=== PATIENT | male | born 1975 | race Caucasian/White ===

== ENCOUNTER 2019-03-24 09:44 | Inpatient (IN) | payer MEDICAID ==
[~2019-03-24] VITALS: Ht 190.5 cm; Wt 146.5 kg
--- NOTE | 2019-03-24 09:57 | NUR ---
Patient to ER bed 06 to gown for evaluation. Side rails up.
--- NOTE | 2019-03-24 09:58 | NUR ---
Patient arrived in the ED c/o bilateral lower leg edema, redness and warm to touch with fevers that started yesterday. He's also complaining of Right shoulder pain and limited ROM that's been ongoing for a couple of months now post mechanical fall. Denied any nausea or vomiting. Denied any shortness of breath. Alert and oriented x4, respirations even and unlabored, ambulating with a steady gait, speaking in full sentences. VS WNL, pain level 0/10. at bedside. Informed of the wait time. Instructed to notify ED staff if there are any changes in condition or worsening of symptoms. Patient verbalized understanding.
--- NOTE | 2019-03-24 09:59 | NUR ---
KAREN Moreno at bedside examining patient.
[2019-03-24 10:03] VITALS: BP_SYST 132
[2019-03-24] MEDS ORDERED: NACL 0.9% 1,000 ML IV ONE ×2 (10:15→12:15)
[2019-03-24] MEDS ORDERED: KETOROLAC TROMETHAMINE 30 MG VIAL IVP ONE (10:15)
--- NOTE | 2019-03-24 10:15 | NUR ---
# 18 gauge angiocath placed to LAC. Use of asceptic technique. Opsite placed over site. Blood return noted. Blood for lab drawn from site. Flushed with 10 cc of normal saline. No evidence of infiltration noted. Patient tolerated well.
--- NOTE | 2019-03-24 10:21 | NUR ---
Administered Toradol 30mg IVP as ordered by Dr. Moreno. Patient tolerated the medications well.
[2019-03-24 10:27] LABS: BASOPHILS % (AUTO) 0.2 % (0.0-2.0); EOSINOPHILS % (AUTO) 0.2 % (0.0-4.0); HEMATOCRIT 43.2 % (36-54); LYMPHOCYTES # (AUTO) 1.2 K/uL (1.0-5.5); LYMPHOCYTES % (AUTO) 8.1 % (20.5-51.5); MEAN CORPUSCULAR HEMOGLOBIN 32 pg (27-31); MEAN CORPUSCULAR HGB CONC 35 % (32-36); MEAN CORPUSCULAR VOLUME 91 fL (79.0-98.0); MONOCYTES # (AUTO) 0.5 K/uL (0.0-1.0); MONOCYTES % (AUTO) 3.3 % (1.7-9.3); NEUTROPHILS # (AUTO) 13.1 K/uL (1.8-7.7); NEUTROPHILS % (AUTO) 88.2 % (40.0-70.0); PLATELET COUNT (AUTO) 186 K/uL (130-430); RED BLOOD CELL COUNT(AUTO) 4.77 MIL/uL (4.2-6.2); RED CELL DISTRIBUTION WIDTH 13.2 % (9.0-15.0); WHITE BLOOD COUNT (AUTO) 14.8 K/uL (4.8-10.8)
[2019-03-24 10:41] LABS: CALCIUM 8.7 mg/dL (8.4-11.0); CREATININE 1.19 mg/dL (0.55-1.30); POTASSIUM 3.8 mmol/L (3.5-5.1)
[2019-03-24 10:45] LABS: ALBUMIN 3.4 g/dL (3.4-4.8); TOTAL BILIRUBIN 0.7 mg/dL (0.0-1.0)
--- NOTE | 2019-03-24 10:52 | NUR ---
Reassessed pain level, 10 per patient. Patient is resting comfortably in bed.
--- NOTE | 2019-03-24 11:15 | NUR ---
Ultrasound done at bedside. Patient tolerated the procedure well.
--- NOTE | 2019-03-24 11:25 | NUR ---
Administered Levofloxacin 750mg IV running 100ml/hr as ordered by Dr. Moreno. Patient tolerated the medication well.
--- NOTE | 2019-03-24 11:39 | NUR ---
Administered Morphine Sulfate IVP as ordered by Dr. Moreno. Patent tolerated the medication well.
--- NOTE | 2019-03-24 11:41 | NUR ---
X-ray done at bedside. Patient tolerated the procedure well.
[2019-03-24] MEDS ORDERED: MORPHINE 4 MG/ML INJ. SYRINGE IVP ONE (11:45)
--- NOTE | 2019-03-24 11:57 | NUR ---
Ambulated to the bathroom with a steady gait. Urine specimen collected and dropped off at the lab.
[2019-03-24 12:22] LABS: BILIRUBIN,URINE NEGATIVE (NEGATIVE); BLOOD, URINE 1+ (NEGATIVE); CLARITY/URINE CLEAR (CLEAR); COLOR,URINE YELLOW (YELLOW); GLUCOSE,URINE NEGATIVE (NEGATIVE); KETONES,URINE NEGATIVE (NEGATIVE); LEUKOCYTE ESTERASE ,URINE NEGATIVE (NEGATIVE); NITRITE, URINE NEGATIVE (NEGATIVE); PH,URINE 6.5 (5.0-8.0); PROTEIN URINE NEGATIVE (NEGATIVE); UROBILINOGEN,URINE 0.2 (0.2-1.0)
[2019-03-24 12:33] LABS: BACTERIA,URINE RARE /HPF (None Seen); RBC,URINE 0-3 /HPF (0-3); WBC,URINE 0-3 /HPF (0-3)
[2019-03-24 12:34] LABS: MUCUS,URINE 1+ /LPF (None Seen)
[2019-03-24 12:35] LABS: BARBITURATE, URINE NEGATIVE (NEG <=200); BENZODIAZEPINE, URINE NEGATIVE (NEG <=150); CANNABINOID, URINE NEGATIVE (NEG <=50); COCAINE, URINE NEGATIVE (NEG <=150); PHENCYCLIDINE SCREEN,URINE NEGATIVE (NEG <=25); UR TRICYCLIC ANTIDEPRESSANTS NEGATIVE (NEG <=300); URINE METHADONE NEGATIVE (NEG <=200); URINE OXYCODONE SCREEN NEGATIVE (NEG <=100); URINE PROPOXYPHENE SCREEN NEGATIVE (NEG <=300)
[2019-03-24 12:36] LABS: OPIATE, URINE POSITIVE (NEG <=100)
[2019-03-24 12:37] LABS: METHAMPHETAMINES SCREEN,URINE POSITIVE (NEG <=500); URINE AMPHETAMINE POSITIVE (NEG <=500)
--- NOTE | 2019-03-24 12:44 | NUR ---
ADMISSION: The patient, ALAN MCCRARY, 43 y/o, M admitted by , was given written information regarding hospital policies, unit procedures and contact persons. Valuables were checked and .
--- NOTE | 2019-03-24 12:57 | NUR ---
Patient will be admitted to care of Dr. Martin. Admitted to Medsurg unit. Will go to room 117B. Belongings list completed. Complete and up to date summary report printed. SBAR report given to Poppy Lawton RN at bedside with opportunity for questions.
--- NOTE | 2019-03-24 13:09 | NUR ---
continuation of care report was endorsed by admission nurse. patient is awake and alert laying in bed. breathing is equal and non labored. patient educated cotton weigher operator light for assistance. patient has no complaints at this time. call light is with patient educated to use for assistance. will continue to monitor.
[2019-03-24] MEDS ORDERED: ACETAMINOPHEN 325 MG TABLET PO PRN (14:00)
[2019-03-24] MEDS ORDERED: ONDANSETRON HCL 4 MG/2 ML VIAL IVP PRN ×2 (14:00→18:15)
[2019-03-24] MEDS ORDERED: HYDROcodone/ACETAMIN 5-325 MG TAB (NORCO/ VICODIN) PO PRN (14:00)
[2019-03-24] MEDS ORDERED: TEMAZEPAM 15 MG CAPSULE PO PRN (14:00)
[2019-03-24] MEDS ORDERED: cefTRIAXone 1 GM in D5W 50 ML IV SCH ×2 (15:00→18:15)
--- NOTE | 2019-03-24 15:45 | NUR ---
MEDICATION PATIENTS SCHEDULED MEDICATION GIVEN PER ORDER. PATIENT IS LAYING IN BED, PATIENT IS SLEEPING, ATTEMPTED TO ASK QUESTIONS FOR ADMISSION AND PATIENT IS REFUSING TO ANSWER STATES HE WANTS TO SLEEP. PATIENT EDUCATED RACK ROOM WORKER LIGHT FOR ASSISTANCE. CALL LIGHT IS WITH PATIENT. PATIENT IS REFUSING TO CHANGE INTO A GOWN PATIENT WANTS TO STAY IN REGULAR CLOTHES. PATIENT HAS NO COMPLAINTS AT THIS TIME. PATIENT HAS NO OTHER NEEDS AT THIS TIME.WILL CONTINUE TO MONITOR.
[2019-03-24 16:26] VITALS: BP_SYST 127
[2019-03-24] MEDS: VANCOMYCIN HCL 1,500 MG in NS 250 ML IV SCH (17:08)
--- NOTE | 2019-03-24 17:11 | NUR ---
medication patient scheduled medication given per order. patient is sleeping, wakes up then falls right back to sleep. patient has family at bed side. patient has all safety precautions in place. call light is with patient. educated to use call light for assistance. no other needs at this time. will continue to monitor.
[2019-03-24] MEDS: HYDROcodone/ACETAMIN 10-325 MG TAB PO PRN (18:01)
[2019-03-24] MEDS ORDERED: BISACODYL 5 MG TABLET.DR (DULCOLAX) PO PRN (18:15)
--- NOTE | 2019-03-24 19:00 | NUR ---
rn closing note patient appears to be resting with both eyes closed no signs of any distress, breathing is equal and non labored. patient has all safety precautions in place. call light is with him educated to use for assistance.
--- NOTE | 2019-03-24 19:30 | NUR ---
Opening notes Received report. Patient is asleep and snoring. No signs of distress noted. Breathing even and unlabored. IV patent and intact, no signs of infiltration noted. No needs at this time. Call light with the patient. Safety precautions in place.
[2019-03-24 20:00] VITALS: BP_SYST 144
[2019-03-24] MEDS: ENOXAPARIN SODIUM 40 MG/0.4 ML SYRINGE SUBCUT SCH (21:00)
[2019-03-24] MEDS: DOCUSATE SODIUM 250 MG CAPSULE PO SCH (21:00)
--- NOTE | 2019-03-24 21:00 | NUR ---
Medications given. Educated the action and side effects of medications. Patient verbalized understanding. No adverse effects noted. Patient sitting in bed, eating food brought by . Provided patient with ice. No other needs. Call light with the patient. Safety precautions in place.
[2019-03-24] MEDS: cefTRIAXone 1 GM in D5W 50 ML IV SCH (21:05)
--- NOTE | 2019-03-24 23:20 | NUR ---
Sleeping Patient is sleeping. No signs of distress noted. Breathing even and unlabored. Call light with the patient. Safety precautions in place.
--- NOTE | 2019-03-24 23:58 | NUR ---
CONSULTATION PAGED/CALLED Reason for Consultation: CELLULITIS Person Who was Notified: SIDNEY Consulting Physician: DR. SORIA Ordering Physician: DR. FRENCH
--- NOTE | 2019-03-25 00:30 | NUR ---
Resting Patient resting, complaining of pain. PRN pain medication given. Educated the action and side effects of medications. Patient verbalized understanding. VSS. No other needs. Call light with the patient. Safety precautions in place.
[2019-03-25] MEDS: VANCOMYCIN HCL 1,500 MG in NS 250 ML IV SCH ×3 (00:38→16:47)
[2019-03-25] MEDS: HYDROcodone/ACETAMIN 10-325 MG TAB PO PRN ×3 (00:41→20:43)
[2019-03-25 00:46] VITALS: BP_SYST 133
--- NOTE | 2019-03-25 02:32 | NUR ---
Resting Patient resting in bed. No signs of distress noted. Patient ambulated to bathroom with assist. Patient back in bed. No other needs. Call light with the patient. Safety precautions in place.
--- NOTE | 2019-03-25 04:42 | NUR ---
Sleeping No signs of distress noted. Breathing even and unlabored. Call light with the patient. Safety precautions in place.
[2019-03-25 06:24] LABS: BASOPHILS % (AUTO) 0.3 % (0.0-2.0); EOSINOPHILS # (AUTO) 0.1 K/uL (0.0-0.4); HEMATOCRIT 41.6 % (36-54); HEMOGLOBIN 14.6 g/dL (14.0-18.0); LYMPHOCYTES # (AUTO) 2.4 K/uL (1.0-5.5); LYMPHOCYTES % (AUTO) 22.5 % (20.5-51.5); MEAN CORPUSCULAR HEMOGLOBIN 32 pg (27-31); MEAN CORPUSCULAR HGB CONC 35 % (32-36); MEAN CORPUSCULAR VOLUME 91 fL (79.0-98.0); MONOCYTES # (AUTO) 1.1 K/uL (0.0-1.0); MONOCYTES % (AUTO) 10.8 % (1.7-9.3); NEUTROPHILS # (AUTO) 6.9 K/uL (1.8-7.7); NEUTROPHILS % (AUTO) 65.4 % (40.0-70.0); PLATELET COUNT (AUTO) 181 K/uL (130-430); RED BLOOD CELL COUNT(AUTO) 4.55 MIL/uL (4.2-6.2); RED CELL DISTRIBUTION WIDTH 13.3 % (9.0-15.0); WHITE BLOOD COUNT (AUTO) 10.6 K/uL (4.8-10.8)
--- NOTE | 2019-03-25 06:50 | NUR ---
Closing notes Patient resting in bed, waiting for breakfast. No signs of distress noted. Breathing even and unlabored. IV patent and intact, no signs of infiltration noted. all needs met throughout the shift. Call light with the patient. Safety precautions in place. Will endorse care to day shift RN.
[2019-03-25 06:57] LABS: CALCIUM 8.5 mg/dL (8.4-11.0); CREATININE 1.15 mg/dL (0.55-1.30); POTASSIUM 3.8 mmol/L (3.5-5.1)
[2019-03-25 06:58] LABS: ALBUMIN 3.1 g/dL (3.4-4.8); FREE T4 (FREE THYROXINE) 0.9 ng/dl (0.8-1.5); THYROID STIMULATING HORMONE 3.98 uIu/mL (0.36-3.74)
[2019-03-25] MEDS: cefTRIAXone 1 GM in D5W 50 ML IV SCH ×2 (07:07→18:57)
[2019-03-25 07:23] LABS: TOTAL BILIRUBIN 0.2 mg/dL (0.0-1.0)
--- NOTE | 2019-03-25 07:30 | NUR ---
OPENING NOTES: RECEIVED PATIENT FROM HRBP NURSE. PATIENT IS AWAKE AND ALERT x4 SITTING UP IN BED. PATIENT STATES HE HAS PAIN 6/10 IN HIS RIGHT SHOULDER. PATIENT INFORMED PRN PAIN MEDS WILL BE GIVEN. PATIENT IS TOLERATING OXYGEN AT ROOM AIR WITH NO SIGNS OF DISTRESS OR SHORTNESS OF BREATH NOTED. PATIENT IN STABLE CONDITION. SAFETY, FALL, AND ASPIRATION PRECAUTIONS ARE IN PLACE. BED LOCKED IN LOWEST POSITION WITH CALL LIGHT IN REACH. WILL CONTINUE TO MONITOR PATIENT FOR ANY CHANGES.
[2019-03-25 08:16] VITALS: BP_SYST 139
[2019-03-25] MEDS: DOCUSATE SODIUM 250 MG CAPSULE PO SCH ×2 (08:33→21:00)
--- NOTE | 2019-03-25 10:05 | NUR ---
RN ROUNDS: PATIENT IS ASLEEP IN BED. NO SIGNS OF DISTRESS OR SHORTNESS OF BREATH NOTED. PATIENT IN STABLE CONDITION. SAFETY, FALL AND ASPIRATION PRECAUTIONS ARE IN PLACE. BED LOCKED IN LOWEST POSITION WITH CALL LIGHT IN REACH. WILL CONTINUE TO MONITOR PATIENT FOR ANY CHANGES.
--- NOTE | 2019-03-25 12:05 | NUR ---
RN ROUNDS: PATIENT IS ASLEEP IN BED. NO SIGNS OF DISTRESS OR SHORTNESS OF BREATH NOTED. PATIENT IN STABLE CONDITION. WILL CONTINUE TO MONITOR PATIENT FOR ANY CHANGES.
[2019-03-25 12:36] VITALS: BP_SYST 112
--- NOTE | 2019-03-25 14:20 | NUR ---
RN ROUNDS: PATIENT IS ASLEEP IN BED. NO SIGNS OF DISTRESS OR SHORTNESS OF BREATH NOTED. PATIENT TOLERATING OXYGEN AT ROOM AIR. NO SIGNS OF DISTRESS OR SHORTNESS OF BREATH NOTED. WILL CONTINUE TO MONITOR PATIENT FOR ANY CHANGES.
--- NOTE | 2019-03-25 16:15 | NUR ---
RN ROUNDS: PATIENT IS ASLEEP IN BED. NO SIGNS OF DISTRESS OR SHORTNESS OF BREATH NOTED. IV SITE IS PATENT WITH NO SIGNS OF INFILTRATION. PATIENT IN STABLE CONDITION. SAFETY, FALL, AND ASPIRATION PRECAUTIONS ARE IN PLACE. BED LOCKED IN LOWEST POSITION WITH CALL LIGHT IN REACH. WILL CONTINUE TO MONITOR PATIENT FOR ANY CHANGES.
[2019-03-25 16:39] VITALS: BP_SYST 147
--- NOTE | 2019-03-25 18:33 | NUR ---
CLOSING NOTES: PATIENT IS ASLEEP IN BED. PATIENT IS TOLERATING OXYGEN AT ROOM AIR WITH NO SIGNS OF DISTRESS OR SHORTNESS OF BREATH NOTED. IV SITE IS PATENT WITH NO SIGNS OF INFILTRATION. PATIENT IN STABLE CONDITION. SAFETY, FALL, AND ASPIRATION PRECAUTIONS REMAINED IN PLACE THROUGHOUT THE SHIFT. BED LOCKED IN LOWEST POSITION WITH CALL LIGHT IN REACH. WILL ENDORSE PATIENT CARE TO ONCOMING SENIOR PIPING DESIGNER NURSE.
--- NOTE | 2019-03-25 18:52 | NUR ---
P.T. NOTES P.T. DIOR COMPLETED; PATIENT JOANNE CONNOLLY W/ NURSE AD JOHNATHAN; O2 SAT ROOM AIR=97% Addendum: 03/25/19 at 1853 by Maria Luz Mathew PT Amended: Links added.
[2019-03-25 20:40] VITALS: BP_SYST 101
--- NOTE | 2019-03-25 20:40 | NUR ---
Opening notes Pt asleep, easily arousable. VSS, afebrile, complained of 6/10 pain. Medicated with [place] 10/325mg PO as needed. IV saline lock L. AC clear and patent. Call light within reach. Safety maintained. To monitor.
[2019-03-25] MEDS: ENOXAPARIN SODIUM 40 MG/0.4 ML SYRINGE SUBCUT SCH (21:00)
[2019-03-26] MEDS: VANCOMYCIN HCL 1,500 MG in NS 250 ML IV SCH ×3 (00:27→16:07)
--- NOTE | 2019-03-26 00:35 | NUR ---
Rounds Pt asleep. No s/s distress noted. IV antibiotic infusing L. AC 18G no s/s infiltration. Call light within reach. Safety measures maintained. To monitor.
[2019-03-26 00:40] VITALS: BP_SYST 124
--- NOTE | 2019-03-26 02:40 | NUR ---
Rounds Pt asleep, no s/s distress or discomfort noted. Call light within reach. Bed low, locked, siderails up x3. To monitor.
--- NOTE | 2019-03-26 05:35 | NUR ---
Rounds Pt sleeping, respirations even and unlabored. Call light within reach. Bed low, locked, siderails upx 3. To monitor.
[2019-03-26] MEDS: cefTRIAXone 1 GM in D5W 50 ML IV SCH (06:40)
[2019-03-26] MEDS: HYDROcodone/ACETAMIN 10-325 MG TAB PO PRN ×2 (06:48→13:58)
--- NOTE | 2019-03-26 06:51 | NUR ---
Closing notes Pt asleep, easily arousable. No s/s distress noted. Pt c/o pain 09/16 R. shoulder. Medicated with [place] 10/ 1tab. IV antibiotic administered at ordered rate L. AC good blood return. Call light within reach. Safety measures maintained. To endorse to AM nurse.
[2019-03-26] MEDS ORDERED: LEVOTHYROXINE SODIUM 0.025 MG TABLET PO SCH (07:00)
[2019-03-26 08:00] VITALS: BP_SYST 128
--- NOTE | 2019-03-26 08:00 | NUR ---
initial notes rec patient awake sitting at bedside. denies pain at this time. resp easy and unlabored. no sob noted.bilateral leg cellulitis swelling improving and elevated on a pillow. denies pain at this time. at bedside .
[2019-03-26] MEDS: DOCUSATE SODIUM 250 MG CAPSULE PO SCH (09:55)
--- NOTE | 2019-03-26 10:00 | NUR ---
rounds due meds were given and rain well. ivpb infusing well on the l ac. sleeping at intervals.
--- NOTE | 2019-03-26 11:00 | NUR ---
SS NOTES: COIN COLLECTOR was referred by nursing to see patient for SS assessment/homelessness. Demographic information confirmed. COIN COLLECTOR met with patient at bedside. Pt was asleep but agreed to wake up to be interviewed. Pt appeared to be well groomed, cooperative but no eye contact (answered with eyes closed). Pt was oriented x4 and affect was appropriate. Pt is a 43 y/o single white male who came in via ED for bilateral leg cellulitis. Pt states he has been homeless for 3 years now and has been staying in/out motels, in his car or on the streets around [facility]. Pt is independent with his ADL's (driving included, owns 2 vehicles) and does not require any DME. 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 Pt states he does not receive SSI and has not applied for general relief from SS. Pt states he has a history of anxiety; COIN COLLECTOR inquired on his triggers, pt stated "when I need to answer questions from people" (such as what SS is doing). Pt states he takes amphetamine (amount varies) and states last intake was 3 days ago. Pt denies current trouble with the law but states he had a DUI in 1995 and did Alcoholic Anonymous. Pt also states he served jail for 4 years for meth related. Pt states he does not have any support system and his relationship with family is "somewhat" okay. Pt had eyes closed the entire time, but was still cooperative. COIN COLLECTOR encouraged pt to connect self with PCP and to try applying for SSI; pt agreed and thanked SW. When discharged, pt wishes to be discharged back to [place] [id number] in [place]. COIN COLLECTOR provided pt with [facility] list, substance abuse treatments, outpatient mental health, county clinics, Homeless Assistance, and Homeless waiver on chart. No further SS needs identified but will remain available for support and when needed. Addendum: 03/26/19 at 1614 by Samaria VARGAS ALICIA received a call from patient [facility] list and his [facility] policy number; ALICIA provided pt with info. If SNF is DCP; pt states no preference as long as it is around the area and no [facility] preference.
[2019-03-26 12:00] VITALS: BP_SYST 119
--- NOTE | 2019-03-26 12:00 | NUR ---
rounds accompanied patient outside to smoke and rain well. no sob noted.
--- NOTE | 2019-03-26 13:17 | NUR ---
Dietitian Recommendation * Recommend continuing regular diet LP, RD Please refer to Nutrition Assessment for details. Addendum: 03/26/19 at [address] Amended: Links added.
--- NOTE | 2019-03-26 14:00 | NUR ---
rounds seen by dr cid and ordered to go home after vanco is infused for 1700. mom at bedside. no sob noted.
[2019-03-26] MEDS ORDERED: DOXY100C PO (16:02)
[2019-03-26 16:03] VITALS: BP_SYST 119
--- NOTE | 2019-03-26 16:20 | NUR ---
rounds vanco ivbp started. infusing well and no infiltration noted.c/p pain on the l shoulder and norco given and notified dr cid who is making rounds still.
--- NOTE | 2019-03-26 19:00 | NUR ---
kevin notes pt will be d/c after abx is infused. denies pain. no sob noted. girlfriend at bedside and waiting for patient. no sob noted.
[2019-03-26 19:03] VITALS: BP_SYST 119
--- NOTE | 2019-03-26 19:15 | NUR ---
OPENING NOTES RECEIVED PATIENT IN BED AAO X4. BREATHING UNLABORED ON ROOM AIR. NO C/O PAIN AT THIS TIME. PATIENT FOR DISCHARGE HOME TONIGHT. GIRLFRIEND AT BEDSIDE. BED IN LOWEST LOCKED POSITION. CALL LIGHT WITH IN REACH.
[2019-03-26 19:48] VITALS: BP_SYST 120
--- NOTE | 2019-03-26 20:05 | NUR ---
DISCHARGE INSTRUCTIONS PATIENT PROVIDED WITH DISCHARGE INSTRUCTIONS. HANDED PRESCRIPTIONS FOR PAIN AND PO ANTIBIOTIC. VERIFIED BELONGINGS LIST WITH PATIENT. VITAL SIGNS STABLE. VANCOMYCIN INFUSION COMPLETED. IV LINE REMOVED PRESSURE DRESSING APPLIED.
--- NOTE | 2019-03-26 20:15 | NUR ---
DISCHARGE PATIENT PROVIDED WITH ARM SLING ORDERED. PATIENT WITH GIRLFRIEND ACCOMPANIED TO LOBBY. DISCHARGE TO HOME WITH PATIENT OWN CAR IN STABLE CONDITION.
== END 2019-03-26 20:15 | disposition home or self-care (01) | DRG 720 ==
LOC: SED 09:44 → SMU 12:13
PROVIDERS: ADMIT Internal Medicine; ATTEND Internal Medicine
DX: A41.9 Sepsis, unspecified organism (principal); E66.01 Morbid (severe) obesity due to excess calories; L03.115 Cellulitis of right lower limb; L03.116 Cellulitis of left lower limb; G89.29 Other chronic pain; M25.519 Pain in unspecified shoulder; F19.10 Other psychoactive substance abuse, uncomplicated; L97.929 Non-pressure chronic ulcer of unspecified part of left lower leg with unspecified severity; L97.919 Non-pressure chronic ulcer of unspecified part of right lower leg with unspecified severity; Z68.41 Body mass index [BMI] 40.0-44.9, adult; I87.2 Venous insufficiency (chronic) (peripheral); Z59.0 Homelessness
CPT/HCPCS: 36415; 73030; 80053; 80202-TC; 80307; 81000-TC; 83605; 84439; 84443-TC; 85025; 87040-TC; 87086; 93970; 96361; 96365; 96375; 99285; J0696; J1885; J1956; J2270; J3370; J7050; J7060

== ENCOUNTER 2019-07-28 02:54 | Emergency (ER) | payer MEDICAID, OTHER ==
[~2019-07-28] VITALS: Ht 188 cm; Wt 147.4 kg
[~2019-07-28 02:54] MED LIST: DOXY100C PO
[2019-07-28 03:05] VITALS: BP_SYST 143
[2019-07-28] MEDS ORDERED: IBUPROFEN 800 MG TABLET PO ONE (03:45)
[2019-07-28] MEDS ORDERED: CYCLOBENZAPRINE HCL 10 MG TABLET (FLEXERIL) PO ONE (03:45)
[2019-07-28] MEDS ORDERED: BACITRACIN 1 GM OINT TP ONE (05:15)
[2019-07-28 05:30] VITALS: BP_SYST 140
== END 2019-07-28 05:30 | disposition home or self-care (01) ==
LOC: SED 02:54
DX: S13.4XXA Sprain of ligaments of cervical spine, initial encounter (principal); S43.401A Unspecified sprain of right shoulder joint, initial encounter; M54.12 Radiculopathy, cervical region; G44.209 Tension-type headache, unspecified, not intractable; Z79.899 Other long term (current) drug therapy; V49.40XA Driver injured in collision with unspecified motor vehicles in traffic accident, initial encounter; Y93.89 Activity, other specified; Y92.89 Other specified places as the place of occurrence of the external cause; Y99.8 Other external cause status
CPT/HCPCS: 70450-TC; 72125-TC; 73030; 73590-TC; 99285

== ENCOUNTER 2021-04-26 06:29 | Emergency (ER) | payer MEDICAID ==
[~2021-04-26] VITALS: Ht 188 cm; Wt 167.8 kg
[2021-04-26 06:35] VITALS: BP_SYST 133
--- NOTE | 2021-04-26 06:35 | NUR ---
Patient triaged and placed in waiting room. VSS and patient appears in no acute distress at this time. awaiting available bed, and MD notified of need for MSE.
[2021-04-26] MEDS ORDERED: BACITRACIN 1 GM OINT TP ONE (07:45)
[2021-04-26] MEDS ORDERED: DIPH-TET-PERTUS Vaccine 0.5 ML VIAL (ADACEL) I.M. ONE (07:45)
--- NOTE | 2021-04-26 08:10 | NUR ---
Patient to ER TRIAGE to gown for evaluation. Side rails up. ASSUMED CARE.
--- NOTE | 2021-04-26 08:15 | NUR ---
ER at bedside examining patient.
[2021-04-26] MEDS ORDERED: AMOX-423 PO (08:21)
--- NOTE | 2021-04-26 09:30 | NUR ---
PT RECEIVED WOUND CARE TO L FOOT AND TDAP TOLERATED WELL.
[2021-04-26 09:36] VITALS: BP_SYST 133
--- NOTE | 2021-04-26 09:36 | NUR ---
Patient given written and verbal discharge instructions and verbalizes understanding. ER MD discussed with patient the results and treatment provided. Patient in stable condition. ID arm band removed. NO Rx of given. Patient educated on pain management and to follow up with PMD. Pain Scale 3. Opportunity for questions provided and answered. Medication side effect fact sheet provided.
== END 2021-04-26 09:36 | disposition home or self-care (01) ==
LOC: SED 06:29
DX: S91.332A Puncture wound without foreign body, left foot, initial encounter (principal); W45.0XXA Nail entering through skin, initial encounter; Y93.9 Activity, unspecified; Y92.9 Unspecified place or not applicable; Y99.9 Unspecified external cause status
CPT/HCPCS: 90715; 99281; 99283

== ENCOUNTER 2021-05-04 03:54 | Emergency (ER) | payer MEDICAID ==
[~2021-05-04] VITALS: Ht 188 cm; Wt 140.6 kg
[~2021-05-04 03:54] MED LIST changes: +AMOX-423 PO
[2021-05-04 04:00] VITALS: BP_SYST 143
--- NOTE | 2021-05-04 04:30 | NUR ---
Placed in room 01 . Placed on monitoring analyst, blood pressure machine and pulse oximeter. To gown for exam. Side rails up. Report given to
--- NOTE | 2021-05-04 04:35 | NUR ---
ER at bedside examining patient.
[2021-05-04 05:31] VITALS: BP_SYST 143
== END 2021-05-04 05:31 | disposition home or self-care (01) ==
LOC: SED 03:54
DX: S91.332A Puncture wound without foreign body, left foot, initial encounter (principal); Z79.899 Other long term (current) drug therapy; W45.8XXA Other foreign body or object entering through skin, initial encounter; Y93.89 Activity, other specified; Y92.89 Other specified places as the place of occurrence of the external cause; Y99.8 Other external cause status
CPT/HCPCS: 99281

== ENCOUNTER 2021-08-18 22:30 | Emergency (ER) | payer MEDICAID ==
[~2021-08-18] VITALS: Ht 188 cm; Wt 145.1 kg
[2021-08-18 22:30] VITALS: BP_SYST 158
[2021-08-19] MEDS ORDERED: DIAZEPAM 5 MG TABLET (VALIUM) PO ONE
[2021-08-19] MEDS ORDERED: KETOROLAC TROMETHAMINE 30 MG VIAL IM ONE
[2021-08-19] MEDS ORDERED: IBUPROFEN 800 MG TABLET PO ONE (01:15)
== END 2021-08-19 01:55 | disposition home or self-care (01) ==
LOC: SED 22:30
DX: M25.512 Pain in left shoulder (principal); S42.022A Displaced fracture of shaft of left clavicle, initial encounter for closed fracture; S43.102A Unspecified dislocation of left acromioclavicular joint, initial encounter; S43.086A Other dislocation of unspecified shoulder joint, initial encounter; W22.8XXA Striking against or struck by other objects, initial encounter; Y93.89 Activity, other specified; Y92.89 Other specified places as the place of occurrence of the external cause; Y99.8 Other external cause status
CPT/HCPCS: 73030 ×2; 96372; 99283; J1885

== ENCOUNTER 2023-12-08 22:39 | Emergency (ER) | payer MEDICAID ==
[~2023-12-08] VITALS: Ht 188 cm; Wt 145.1 kg
[2023-12-08 22:47] VITALS: BP_SYST 171; PULSE 89; RESP 16; TEMP 97.2; O2SAT 98
[2023-12-08] MEDS ORDERED: AMOX-520 PO (23:15)
[2023-12-08] MEDS ORDERED: IBUP-1971 PO (23:15)
[2023-12-08] MEDS ORDERED: AMOXICILLIN 250 MG CAPSULE ONE (23:40)
[2023-12-08 23:42] VITALS: BP_SYST 167; PULSE 86; RESP 25; TEMP 99.4; O2SAT 95
[2023-12-08] MEDS ORDERED: IBUPROFEN 600 MG TABLET ONE (23:42)
[2023-12-08] MEDS: AMOXICILLIN 500 MG CAPSULE PO ONE (23:43)
[2023-12-08] MEDS: IBUPROFEN 600 MG TABLET PO ONE (23:43)
== END 2023-12-08 23:43 | disposition home or self-care (01) ==
LOC: SED 22:39
DX: K04.7 Periapical abscess without sinus (principal); Z88.1 Allergy status to other antibiotic agents; Z88.2 Allergy status to sulfonamides
CPT/HCPCS: 99283